=== PATIENT | male | born 1950 | race Caucasian/White ===

== ENCOUNTER 2016-04-21 08:26 | Day surgery (SDC) | payer OTHER ==
[~2016-04-21] VITALS: Ht 177.8 cm; Wt 99.7 kg
[2016-04-21 09:28] VITALS: BP 140/90; PULSE 75; TEMP 97.8
[2016-04-21] MEDS ORDERED: PRINZIDE 25 MG-1 TAB PO (09:31)
[2016-04-21] MEDS ORDERED: ZOCOR 40MG40 MG PO (09:31)
[2016-04-21] MEDS ORDERED: GLUCOPHAGE1000 MG PO (09:32)
[2016-04-21] MEDS ORDERED: THE MEDICINE S200 M2 PO (09:34)
[2016-04-21] MEDS ORDERED: ASPIRIN E.C. 8181 MG PO (09:35)
[2016-04-21] MEDS ORDERED: MELATONIN5 M1 PO (09:36)
[2016-04-21] MEDS ORDERED: GALZIN50 MG PO (09:37)
[2016-04-21] MEDS ORDERED: prevagen PO (09:37)
[2016-04-21 11:50] VITALS: BP 110/67; PULSE 80; TEMP 97.3
[2016-04-21 12:05] VITALS: BP 100/62; PULSE 71
[2016-04-21] MEDS ORDERED: METAMUCIL3.4 GM/DOS PO (12:18)
[2016-04-21] MEDS ORDERED: COLACE 100100 MG/CAP PO (12:18)
[2016-04-21] MEDS ORDERED: NORCO 325 MG-51 TAB PO (12:19)
[2016-04-21 12:20] VITALS: BP 111/77; PULSE 73
[2016-04-21 12:35] VITALS: BP 120/81; PULSE 76
[2016-04-21 12:50] VITALS: BP 115/70; PULSE 81
== END 2016-04-21 13:35 | disposition home or self-care (01) ==
LOC: SDCO 08:26
DX: Z86.010 Personal history of colon polyps (principal); K63.5 Polyp of colon; D23.5 Other benign neoplasm of skin of trunk; I10 Essential (primary) hypertension; E11.9 Type 2 diabetes mellitus without complications
CPT/HCPCS: J0690; J1100; J1885; J2250; J2405; J2704; J3010; J7120

== ENCOUNTER → 2016-10-06 | Outpatient (CLI) | payer OTHER ==
[~2016-10-06] MED LIST: ASPIRIN E.C. 8181 MG PO; COLACE 100100 MG/CAP PO; GALZIN50 MG PO; GLUCOPHAGE1000 MG PO; MELATONIN5 M1 PO; METAMUCIL3.4 GM/DOS PO; NORCO 325 MG-51 TAB PO; PRINZIDE 25 MG-1 TAB PO; THE MEDICINE S200 M2 PO; ZOCOR 40MG40 MG PO; prevagen PO
== END ==
LOC: COL.RAD 12:45
DX: R51 Headache (principal); R00.2 Palpitations
CPT/HCPCS: A9585

== ENCOUNTER → 2018-10-13 | Outpatient (CLI) | payer MEDICARE, OTHER | LOC: COL.RAD 12:36 | DX: D17.5 Benign lipomatous neoplasm of intra-abdominal organs (principal) ==

== ENCOUNTER 2020-10-30 20:29 | Inpatient (IN) | payer MEDICARE, OTHER ==
[~2020-10-30] VITALS: Ht 177.8 cm; Wt 104.5 kg
[2020-10-30 21:29] LABS: BASO % 0.3 % (0.0-2.0); EOS % 0.2 % (0-4.0); GRAN # 4.8 (1.4-6.5); GRAN % 77.7 % (42.2-75.2); HEMOGLOBIN 11.7 g/dl (13.5-18.0); LYMPH # 0.6 (1.2-3.4); LYMPH % 9.9 % (20.0-51.0); MEAN CELL VOLUME 84 fl (80.0-100.0); MEAN CORPUSCULAR HEMOGLOBIN 30 pg (27.0-31.0); MEAN CORPUSCULAR HGB CONC 36 g/dl (33.0-37.0); MEAN PLATELET VOLUME 9.7 fl (7.4-10.4); MONO # 0.7 (0.1-0.6); MONO % 11.3 % (1.7-9.3); PLATELET COUNT 185 K/mm3 (130-400); RED BLOOD COUNT 3.94 M/mm3 (4.20-5.60); REDCELL DISTRIBUTION WIDTH-CV 13.7 % (11.5-14.5)
[2020-10-30 21:39] LABS: BILIRUBIN,TOTAL 1.4 mg/dL (0.0-1.0); CALCIUM 8.7 mg/dL (8.4-10.2); CREATININE, serum 0.72 (0.66-1.25); POTASSIUM 3.1 mmol/L (3.4-5.0); TOTAL PROTEIN 7.3 gm/dL (6.4-8.2)
[2020-10-30 21:50] LABS: TROPONIN-I 0.035 ng/mL (0.000-0.035)
[2020-10-30 23:57] LABS: COLLECTION METHOD CLEAN CATCH
[2020-10-31 00:04] LABS: MUCOUS Present /lpf; PH 7 (5-8); SQUAMOUS EPITHELIAL None Seen /hpf; URINE APPEARANCE Clear; URINE BACTERIA None Seen /hpf; URINE BILIRUBIN Negative (NEGATIVE); URINE BLOOD Negative (NEGATIVE); URINE COLOR Yellow; URINE GLUCOSE Negative (NEGATIVE); URINE KETONE 1+ (NEGATIVE); URINE LEUKOCYTE ESTERASE Negative (NEGATIVE); URINE NITRATE Negative (NEGATIVE); URINE PROTEIN(semi-quant) 1+ (NEGATIVE); URINE RBC 0-2 /hpf
[2020-10-31] MEDS ORDERED: ZOFRAN ODT4 MG PO (00:32)
[2020-10-31] MEDS ORDERED: CRESTOR40 MG PO (02:45)
[2020-10-31] MEDS ORDERED: EMERGEN-C 1,01000 MG PO (02:46)
[2020-10-31] MEDS ORDERED: VITAMIND3 5000 PO (02:48)
--- NOTE | 2020-10-31 03:03 | NUR ---
PT ADMITTED TO THE UNIT, ADMISSION INTAKE AND ASSESSMENT COMPLETED. PT ORIENTED TO ROOM. COMPLAINING OF COUGH, FEVER, SOB, AND GENERALIZED BODY ACHES. UPON AUSCULTATION LUNG SOUNDS DIMINSHED WITH SOME WHEEZING. PT STATES ITS DIFFICULT TO TAKE A DEEP BREATH DUE TO IT CAUSING COUGHING FITS. PT UPSET AT THIS TIME BECAUSE HE HAS NOT BEEN STARTED ON AN ANTIBIOTIC DRIP YET AND THAT'S WHY HE AGREED TO STAY OVERNIGHT. DENIES ANY NEEDS AT THIS TIME. WILL CONTINUE TO MONITOR.
[2020-10-31 04:24] VITALS: BP 160/83; PULSE 105; TEMP 99.9
--- NOTE | 2020-10-31 05:39 | NUR ---
PT UNHAPPY WITH THE CARE HE IS RECEIVING, STATES THAT THIS IS THE MOST "INEFFICIENT SYSTEM" DUE TO HIM HAVING TO WAIT FOR SOMEONE TO GO GET HIS COUGH DROPS. WILL CONTINUE TO MONITOR.
[2020-10-31] MEDS ORDERED: ISOPTIN SR240 MG PO (07:17)
--- NOTE | 2020-10-31 07:17 | NUR ---
RECEIVED REPORT FROM HAYDEN FELIZ. PT AWAKE, SITTING UP IN BED, SPEAKING WITH WHITNEY ESPINOZA. CALL ANDRADE IN REACH.
[2020-10-31] MEDS ORDERED: CRESTOR20 MG PO (07:18)
[2020-10-31] MEDS ORDERED: BYSTOLIC20 MG PO (07:19)
[2020-10-31 07:22] VITALS: BP 164/84; PULSE 100; TEMP 102.3
[2020-10-31 09:21] VITALS: TEMP 98.9
--- NOTE | 2020-10-31 09:31 | NUR ---
Initial visit; Patient thanked Anatomic Pathology Assistant for stopping. Nurse with patient. Anatomic Pathology Assistant will follow up.
[2020-10-31 10:57] LABS: BASO % 0.4 % (0.0-2.0); EOS % 0.3 % (0-4.0); GRAN # 6.1 (1.4-6.5); GRAN % 83.3 % (42.2-75.2); HEMOGLOBIN 11.7 g/dl (13.5-18.0); LYMPH # 0.4 (1.2-3.4); LYMPH % 5.5 % (20.0-51.0); MEAN CELL VOLUME 85 fl (80.0-100.0); MEAN CORPUSCULAR HEMOGLOBIN 29 pg (27.0-31.0); MEAN CORPUSCULAR HGB CONC 35 g/dl (33.0-37.0); MEAN PLATELET VOLUME 9.8 fl (7.4-10.4); MONO # 0.7 (0.1-0.6); MONO % 9.9 % (1.7-9.3); PLATELET COUNT 217 K/mm3 (130-400)
[2020-10-31 11:03] LABS: HEMATOCRIT 33.8 % (42.0-52.0)
[2020-10-31 11:07] LABS: CALCIUM 8.6 mg/dL (8.4-10.2); CREATININE, serum 1.06 (0.66-1.25); POTASSIUM 3.3 mmol/L (3.4-5.0)
--- NOTE | 2020-10-31 11:51 | NUR ---
SW met with the patient to discuss discharge plan. The patient lives alone in [place]. He states that he has good neighbor support. He reports independence with ADLs an does not have any DME. The patient's PCP is Dr. Jessica Friend and he receives his medications from [facility] in [facility]. He reports no difficulties obtaining his meds. The patient does not have a DPOA-HC, but he was interested in obtaining a form. SW provided. The patient states that he is not , does not have any children, his parents are , and that he does not have any brothers or sisters. The patient reports that he would like to designate his neighbor, Cheryl Leal (ph#[phone]), as his DPOA-HC, but he would like to talk to her first about it, before completing the DPOA-HC. He plans to notify staff after he talks to Cheryl. The patient plans to return home upon discharge. SW to follow as needed. *Discharge plan: home*
[2020-10-31 11:53] VITALS: BP 136/84; PULSE 79; TEMP 98.3
[2020-10-31 17:15] VITALS: BP 122/73; PULSE 83; TEMP 98.1
[2020-10-31 17:30] LABS: CALCIUM 8.5 mg/dL (8.4-10.2); CREATININE, serum 0.95 (0.66-1.25)
--- NOTE | 2020-10-31 18:06 | NUR ---
PT HAD UNEVENTFUL DAY. CALL ANDRADE IN REACH. NO NEEDS AT THIS TIME.
[2020-10-31 21:19] VITALS: BP 146/82; PULSE 97; TEMP 100.9
[2020-10-31 22:23] LABS: CALCIUM 8.2 mg/dL (8.4-10.2); CREATININE, serum 0.78 (0.66-1.25); POTASSIUM 3.5 mmol/L (3.4-5.0)
--- NOTE | 2020-10-31 23:28 | NUR ---
PT RESTING IN BED. EVENING MEDICATIONS GIVEN. PT LUNG SOUNDS HAVE COARSE CRACKLES IN BILATERAL BASES. A SMALL AMOUNT OF EDEMA IN BLE. PT HAD A SMALL AMOUNT OF SPUTUM, IT WAS THICK AND YELLOW IN COLOR. DENIES ANY NEEDS AT THIS TIME. WILL CONTINUE TO MONITOR.
[2020-11-01 00:23] VITALS: BP 150/80; PULSE 63; TEMP 98
[2020-11-01 04:45] VITALS: BP 150/80; PULSE 78; TEMP 98
[2020-11-01 08:31] VITALS: BP 153/73; PULSE 82; TEMP 98.5
[2020-11-01 08:50] LABS: BASO % 0.6 % (0.0-2.0); EOS # 0.1 (0.0-0.7); EOS % 0.9 % (0-4.0); GRAN # 3.7 (1.4-6.5); HEMOGLOBIN 10.6 g/dl (13.5-18.0); LYMPH # 0.8 (1.2-3.4); LYMPH % 14.7 % (20.0-51.0); MEAN CELL VOLUME 84 fl (80.0-100.0); MEAN CORPUSCULAR HEMOGLOBIN 29 pg (27.0-31.0); MEAN CORPUSCULAR HGB CONC 35 g/dl (33.0-37.0); MEAN PLATELET VOLUME 9.8 fl (7.4-10.4); MONO # 0.7 (0.1-0.6); MONO % 13.2 % (1.7-9.3); PLATELET COUNT 214 K/mm3 (130-400); RED BLOOD COUNT 3.62 M/mm3 (4.20-5.60); REDCELL DISTRIBUTION WIDTH-CV 14.1 % (11.5-14.5)
[2020-11-01 08:51] LABS: HEMATOCRIT 30.4 % (42.0-52.0)
[2020-11-01 09:00] LABS: CREATININE, serum 0.69 (0.66-1.25); POTASSIUM 3.6 mmol/L (3.4-5.0)
--- NOTE | 2020-11-01 09:56 | NUR ---
Initial visit;Heel Scorer introduced herself to patient and offered God's blessings.
[2020-11-01 11:42] VITALS: BP 142/79; PULSE 68; TEMP 98.4
[2020-11-01] MEDS ORDERED: ZITHROMAX500 M2 PO (13:26)
[2020-11-01] MEDS ORDERED: ZESTRIL40 MG PO (13:27)
[2020-11-01] MEDS ORDERED: OMNICEF 300MG300 MG PO (13:28)
--- NOTE | 2020-11-01 14:28 | NUR ---
Primary nurse was assisted with [phone] patient care by [employer] [facility] [facility] student Jailyn Franz and [facility] instructor Rachelle Denton MSN, RN
--- NOTE | 2020-11-01 15:23 | NUR ---
Discharge instructions reviewed with the patient, instructed to follow up with PCP as we have scheduled for him, instructed to take meds as prescribed and to finish course of abx, IV and tele removed prior to discharge, GLASS[employer] DEFECT REPAIRER escorted him out by wheelchair
== END 2020-11-01 16:48 | disposition home or self-care (01) | DRG 871 ==
LOC: COL.ER 20:29 → MEDICAL 10-31 01:41
PROVIDERS: Nurse Practitioner Family; Physician Assistant
DX: A41.9 Sepsis, unspecified organism (principal); J18.9 Pneumonia, unspecified organism; E87.1 Hypo-osmolality and hyponatremia; I50.30 Unspecified diastolic (congestive) heart failure; R65.20 Severe sepsis without septic shock; E87.8 Other disorders of electrolyte and fluid balance, not elsewhere classified; I27.20 Pulmonary hypertension, unspecified; E87.6 Hypokalemia; G47.33 Obstructive sleep apnea (adult) (pediatric); R73.03 Prediabetes; K76.0 Fatty (change of) liver, not elsewhere classified; Z20.822 Contact with and (suspected) exposure to COVID-19; Z85.46 Personal history of malignant neoplasm of prostate; Z79.82 Long term (current) use of aspirin; Z87.891 Personal history of nicotine dependence
CPT/HCPCS: 99239; J0696; J1815; J7030

== ENCOUNTER → 2020-11-07 | Outpatient (CLI) | payer MEDICARE, OTHER ==
[~2020-11-07] MED LIST changes: +BYSTOLIC20 MG PO; +CRESTOR20 MG PO; +CRESTOR40 MG PO; +EMERGEN-C 1,01000 MG PO; +ISOPTIN SR240 MG PO; +OMNICEF 300MG300 MG PO; +VITAMIND3 5000 PO; +ZESTRIL40 MG PO; +ZITHROMAX500 M2 PO; +ZOFRAN ODT4 MG PO
== END ==
LOC: COL.RAD 09:44
DX: I70.0 Atherosclerosis of aorta (principal); Z87.891 Personal history of nicotine dependence